=== PATIENT | male | born 1970 | race Caucasian/White ===

== ENCOUNTER → 2022-03-11 | Day surgery (SDC) | payer OTHER ==
[~2022-03-11] VITALS: Ht 182.9 cm; Wt 63.5 kg
[~2022-03-11] MED LIST: AMOX TR-K CLV1 EAC4 PO; HYDROCODON-ACE1 EAC6 PO; ZOFRAN 4 MG TAB4 MG PO
== END | disposition home or self-care (01) ==
LOC: OR 09:49
DX: S67.191A Crushing injury of left index finger, initial encounter (principal); X58.XXXA Exposure to other specified factors, initial encounter; Z79.82 Long term (current) use of aspirin
CPT/HCPCS: J0690; J1100; J2250; J2405; J2704; J3010